=== PATIENT | female | born 1990 | race Caucasian/White ===

== ENCOUNTER 2016-09-28 06:21 | Emergency (ER) | payer BC ==
[~2016-09-28] VITALS: Ht 172.7 cm; Wt 86.2 kg
--- NOTE | ~2016-09-28 | EKG ---
PATIENT: TAMMY IRWIN UNIT #: [id number] Ventricular Rate: 109 BPM Atrial Rate: 110 BPM P-R Interval: 128 ms QRS Duration: 98 ms Q-T Interval: 352 ms QTC Calculation(Bezet): 474 ms P [place]: 75 degrees Calculated R [place]: 90 degrees Calculated T [place]: 53 degrees Diagnosis Line: Sinus tachycardia with occasional Premature Diagnosis Line: ventricular complexes Diagnosis Line: Possible Left atrial enlargement Diagnosis Line: Rightward axis Diagnosis Line: Incomplete right bundle branch block Diagnosis Line: Nonspecific ST abnormality Diagnosis Line: Abnormal ECG Diagnosis Line: When compared with ECG of 28-SEP-2016 06:36, Diagnosis Line: (unconfirmed) Diagnosis Line: Significant changes have occurred Diagnosis Line: Confirmed by DEMETRIUS GOSS MD ([id number]) on 09/28/2016 Diagnosis Line: 3:15:37 PM INTERPRETING MD: ANA PAULA GALLARDO
--- NOTE | ~2016-09-28 | EKG ---
PATIENT: TAMMY IRWIN UNIT #: [id number] Ventricular Rate: 222 BPM Atrial Rate: 220 BPM QRS Duration: 90 ms Q-T Interval: 194 ms QTC Calculation(Bezet): 373 ms Calculated R [place]: 85 degrees Calculated T [place]: -64 degrees Diagnosis Line: Supraventricular tachycardia Diagnosis Line: Marked ST abnormality, possible inferior Diagnosis Line: subendocardial injury Diagnosis Line: Abnormal ECG Diagnosis Line: When compared with ECG of 28-SEP-2016 06:36, Diagnosis Line: (unconfirmed) Diagnosis Line: No significant change was found Diagnosis Line: Confirmed by DEMETRIUS GOSS MD ([id number]) on 09/28/2016 Diagnosis Line: 3:15:17 PM INTERPRETING MD: ANA PAULA GALLARDO
[2016-09-28 07:04] LABS: BASOPHIL# 0.1 X10e3 (0-0.3); BASOPHIL% 0.9 % (0-2.5); EOSINOPHIL# 0.1 X10e3 (0-0.7); HEMATOCRIT 35.9 % (35.0-45.0); LYMPHOCYTE# 1.4 X10e3 (1.0-3.5); LYMPHOCYTE% 18.2 % (17.0-45.0); MEAN CELL VOLUME 82.7 FL (83-96); MEAN CORPUSCULAR HEMOGLOBIN 27.7 PG (28-34); MEAN CORPUSCULAR HGB CONC 33.5 g/dL (30-36); MEAN PLATELET VOLUME 9.3 FL (6.5-11.5); MONOCYTE# 0.7 X10e3 (0-1.0); MONOCYTE% 9.4 % (3.0-12.0); NEUTROPHIL# 5.4 X10e3 (1.5-7.1); NEUTROPHIL% 70.5 % (40-75); PLATELET COUNT 198 X10e3 (140-420); RED BLOOD COUNT 4.35 X10e (3.90-5.30); RED CELL DISTRIBUTION WIDTH 13.8 % (11.0-15.5); WHITE BLOOD COUNT 7.7 X10e3 (4.0-10.5)
[2016-09-28 07:06] LABS: DIFF IND NO
[2016-09-28 07:32] LABS: ALKALINE PHOSPHATASE 60 U/L (32-92); ALT (SGPT) 19 U/L (10-40); AST (SGOT) 22 U/L (10-42); BILIRUBIN,TOTAL 0.6 mg/dL (0.2-2.0); BLOOD UREA NITROGEN 15 mg/dL (9-23); BUN/CREATININE RATIO 21.42; CALCIUM SERUM 8.4 mg/dL (8.4-10.2); CARBON DIOXIDE 23 mmol/L (22-31); CHLORIDE 104 mmol/L (100-111); CREATININE SERUM 0.7 mg/dL (0.6-1.4); GLOM FILT RATE Estimated 120.4 mL/min (>60); GLUCOSE FASTING 147 mg/dL (70-110); MAGNESIUM 1.7 mg/dL (1.6-3.0); POTASSIUM 3.7 mmol/L (3.5-5.1); PROTEIN TOTAL SERUM 7.3 g/dL (6.0-8.3); SODIUM 137 mmol/L (135-145)
[2016-09-28 07:35] LABS: ALCOHOL BLOOD <5 mg/dL (0)
[2016-09-28 07:40] LABS: POC - CKMB <1.0 ng/mL (0.0-7.9); POC - TROPONIN <0.05 ng/mL (<=0.05)
[2016-09-28 08:16] LABS: THYROID STIMULATING HORMONE 4.47 uIU/ml (0.34-5.60)
[2016-09-28 08:23] LABS: FREE THYROXIN (T4) 0.9 ng/dL (0.58-1.64)
[2016-09-28 09:44] LABS: AMPHETAMINE NEG (NEG); BARBITURATES NEG (NEG); BENZODIAZEPINES NEG (NEG); COCAINE NEG (NEG); MARIJUANA NEG (NEG); OPIATES NEG (NEG); TRICYCLIC ANTIDEPRESSANTS NEG (NEG); U METHADONE NEG (NEG)
== END 2016-09-28 11:11 | disposition home or self-care (01) ==
LOC: CED 06:21
PROVIDERS: Emergency Medicine
DX: I47.1 Supraventricular tachycardia (principal)
CPT/HCPCS: 80053; 80307; 82553; 83735; 84439; 84443; 84484; 84703; 85025; 93005; 96374; 96375; 99291; G0480; J0153; J2405